=== PATIENT | female | born 1945 | race Caucasian/White ===

== ENCOUNTER → 2016-03-17 | Outpatient (CLI) | payer OTHER ==
[~2016-03-17] MED LIST: ACTONEL150 MG PO; ADULT LOW DOSE81 MG PO; CELEBREX 200 M200 MG PO; COLACE100 MG PO; EVISTA PO; FIBER GUMMIES2.5 GM PO; FLOMAX0.4 MG PO; GLUCOSAMINE CH1 EAC7 PO; ICAPS TABLET1 EACH PO; IRON325 M1 PO; LEXAPRO 10 MG T10 M2 PO; LOSARTAN-HCTZ1 EACH PO; MSM500 MG PO; MULTIVITAMINS PO; NORCO 7.5-3251 EACH PO; OCEAN45 ML NASAL; SALINE NOSE SPRAY NASAL; SIMVASTATIN40 MG PO; URECHOLINE 25 M25 M1 PO; VIACTIV SOFT C1 EACH PO; XARELTO10 M1 PO
== END ==
LOC: RAD 01:05
DX: Z12.31 Encounter for screening mammogram for malignant neoplasm of breast (principal)

== ENCOUNTER → 2016-05-21 | Outpatient (CLI) | payer OTHER | END | disposition home or self-care (01) | LOC: ULTRA 09:59 | DX: M16.12 Unilateral primary osteoarthritis, left hip (principal) ==

== ENCOUNTER 2016-09-14 05:41 | Inpatient (IN) | payer OTHER ==
[2016-09-06 13:20] LABS: URINE BILIRUBIN NEGATIVE (Negative); URINE BLOOD NEGATIVE (Negative); URINE COLOR YELLOW; URINE GLUCOSE-RANDOM* NEGATIVE (Negative); URINE KETONES NEGATIVE (Negative); URINE LEUKOCYTES-REFLEX NEGATIVE (Negative); URINE PROTEIN (DIPSTICK) NEGATIVE (Negative); URINE SPECIFIC GRAVITY 1.015 (1.003-1.035); URINE UROBILINOGEN 0.2 E.U./dl (0.2-1.0)
[2016-09-06 13:21] LABS: HEMATOCRIT 37.9 % (37.0-47.0); HEMOGLOBIN 12.9 gm/dL (12.0-15.0); MCH 30.5 pg (26.0-34.0); MCV 89.7 fL (80.0-100.0); RBC 4.22 mil/uL (4.20-5.00); RDW 12.7 % (10.5-14.5); WBC 7.9 thou/uL (4.0-11.0)
[2016-09-06 13:31] LABS: ALBUMIN 3.9 g/dL (3.4-5.0); CALCIUM 9.7 mg/dL (8.5-10.1); CREATININE 0.8 mg/dL (0.6-1.0); POTASSIUM 3.5 mmol/L (3.5-5.1)
[2016-09-06 13:35] LABS: PROTIME 10.5 Seconds (9.3-11.4)
[2016-09-14] VITALS (9 sets, daily range): BP systolic 104–143; BP diastolic 52–80
[~2016-09-14] VITALS: Ht 149.9 cm; Wt 63.0 kg
--- NOTE | ~2016-09-14 | O ---
[facility] [place] [address] OPERATIVE REPORT Name: GARRET GALAVIZ Room #: 539-P [facility] IN M.R.#: [id number] Admission: 09/14/16 Attend Phys: Jc Stark MD Discharge: 09/17/16 Date of : 43 Report #: [id number] THIS REPORT FOR: //name// CC: Ketan Stark DATE OF SERVICE: 09/14/2016 PREOPERATIVE DIAGNOSIS: Left hip degenerative joint disease, severe. POSTOPERATIVE DIAGNOSIS: Left hip degenerative joint disease, severe. PROCEDURE: Left total hip arthroplasty. SURGEON: Jc Stark MD CHIEF OF PEDIATRIC UROLOGY: RAKEL Mckenna INDICATIONS FOR CHIEF OF PEDIATRIC UROLOGY: During the course of operation, extensive manipulation, retraction and limb positioning was required. This was afforded to me by my salon assistant. ANESTHETIC: General. INDICATIONS: See hospital H and P. IMPLANTS UTILIZED: Used a [place] hip system. We used a Secur-Fit Max hip stem, 132-degree neck angle. We used a 32 outer diameter head, -5 neck length. We used a 48 hemispherical acetabular shell with a Trident X3 10-degree polyethylene insert. DESCRIPTION OF PROCEDURE: After adequate general anesthesia had been obtained, the patient was placed in lateral decubitus position with left hip up. Left hip and lower extremity was prepped and draped in the usual meticulous sterile fashion. A posterolateral incision was made in the hip. SubQ divided sharply. Hemostasis obtained with electrocautery. The IT band and gluteal fascia was divided. This layer was retracted with a Charnley retractor. Hip was internally rotated and the external rotators were detached at their insertion, tagged and retracted posteriorly. Capsular incision was made. It likewise was tagged and retracted posteriorly. Hip was dislocated. Soft tissue removed from the base of the neck. The neck was entered with a pointed awl and this was advanced into the canal. The canal was then sequentially reamed to a size 7. Neck osteotomy performed. Attention was directed to the acetabulum and was circumferentially exposed. [address] [address] OPERATIVE REPORT Name: GARRET GALAVIZ Room #: 539-P DIS IN M.R.#: [id number] Admission: 09/14/16 Attend Phys: Jc Stark MD Discharge: 09/17/16 Date of : 43 Report #: [id number] Labrum was excised. We reamed the acetabulum to a size 48. Trialed a 48, which got a good press fit, so we reamed to a 46, got a good press fit with a trial of 46, so we reamed to a 47, irrigated copiously and then implanted the shell. The wound was irrigated copiously once again and the liner was impacted into position and elevated portion posteriorly. Attention was redirected to the femur. Femur was sequentially broached to a size 7. Excellent torsional stability obtained. We then trial reduced her and with a -5 neck length, reapproximated her leg lengths and gave us excellent stability parameters. We then removed the trial components, irrigated copiously and then implanted the permanent component into position. We placed the stem and then the head was impacted into position. Hip was reduced. The capsule and the external rotators were reattached to the trochanter by placing drill holes in trochanter, placing sutures through the drill holes and tying them over a bone bridge. We then placed drains deep and superficial. Hip was irrigated copiously once final time. The IT band and gluteal fascia was closed with combination of an interrupted [id number] #1 Vicryl as well as running #1 Tevdek. SubQ closed in multiple layers due to the patient's size with 2-0 Monocryl. Skin closed with jenn. Sterile compressive dressing was applied. <ELECTRONICALLY SIGNED> By: Jc Stark MD 09/21/16 0723 1230 [id number] Jc Stark MD /nt
--- NOTE | ~2016-09-14 | EKG ---
[address] [address] ELECTROCARDIOGRAM REPORT Name: GARRET GALAVIZ Room #: PRE IN [facility].#: [id number] Admission: Attend Phys: Jc Stark MD Discharge: Date of : 43 Report #: [id number] THIS REPORT FOR: //name// [facility] Test Date: 2016-09-06 Test Time: 13:09:24 Pat Name: GARRET GALAVIZ Department: Room: Gender: F Host: Doyle BUSTAMANTE : 1945 Requested By: Jc Stark Order Number: [id number] MD: Kosta Osei Measurements Intervals [place] Rate: 75 P: 42 NC: 149 QRS: -9 QRSD: 91 T: 11 QT: 388 QTc: 434 Interpretive Statements Sinus rhythm Normal tracing Compared to ECG 04/09/2013 08:21:42 No significant changes Electronically Signed On 09-07-2016 7:39:31 CDT by Kosta Osei [email or web address] <ELECTRONICALLY SIGNED> By: Kosta Osei MD, [facility] 09/07/16 0739 1309 1309 Kosta Osei MD, FACC /EPI
[~2016-09-14 05:41] MED LIST changes: +ASPIR 8181 MG PO; +HYZAAR 50-12.51 EACH PO; +LEXAPRO 10 MG T10 MG PO; +MOVE FREE JOIN1 EACH PO; +NORCO 5-325 TA1 EACH PO; +PRESERVISION A1 EAC2 PO; +ZOCOR40 MG PO
[2016-09-14 16:56] LABS: HIV-1 P24 AG Nonreactive (Nonreactive)
[2016-09-15 04:00] VITALS: BP 97/48
[2016-09-15 06:29] LABS: HEMATOCRIT 31.5 % (37.0-47.0); HEMOGLOBIN 10.8 gm/dL (12.0-15.0); MCH 30.6 pg (26.0-34.0); MCHC 34.4 g/dL (28.0-37.0); PLATELET COUNT 214 thou/uL (150-400); RBC 3.54 mil/uL (4.20-5.00); RDW 12.6 % (10.5-14.5); WBC 15.3 thou/uL (4.0-11.0)
[2016-09-15 06:31] LABS: MANUAL DIFF YES
[2016-09-15 06:38] LABS: CALCIUM 8.6 mg/dL (8.5-10.1); CREATININE 0.7 mg/dL (0.6-1.0); POTASSIUM 3.7 mmol/L (3.5-5.1)
[2016-09-15 08:13] VITALS: BP 108/53
[2016-09-15 09:14] LABS: ABSOLUTE NEUTROPHILS 12.9 thou/uL (1.4-8.2); PLATELET ESTIMATE NORMAL; TOTAL CELL COUNT 100
[2016-09-15 13:13] VITALS: BP 108/53
[2016-09-15 15:07] LABS: HBsAG-EMPLOYEE EXPOSURE Negative (Negative); HCV AB-EMPLOYEE EXPOSURE <0.1 (0.0-0.9)
[2016-09-15 15:19] VITALS: BP 111/60
[2016-09-15 19:29] VITALS: BP 131/64
[2016-09-16 04:35] VITALS: BP 122/49
[2016-09-16 06:30] LABS: HEMATOCRIT 29.2 % (37.0-47.0); HEMOGLOBIN 10.1 gm/dL (12.0-15.0); MCH 30.6 pg (26.0-34.0); MCHC 34.4 g/dL (28.0-37.0); MCV 88.9 fL (80.0-100.0); RBC 3.29 mil/uL (4.20-5.00); RDW 12.8 % (10.5-14.5); WBC 12.8 thou/uL (4.0-11.0)
[2016-09-16] MEDS ORDERED: XARELTO10 MG PO (07:17)
[2016-09-16] MEDS ORDERED: HYDROCODONE-APA1 TA1 PO (07:17)
[2016-09-16 10:27] VITALS: BP 108/53
[2016-09-16 16:05] VITALS: BP 102/68
[2016-09-16 20:15] VITALS: BP 129/54
[2016-09-16 23:40] VITALS: BP 112/55
[2016-09-17 05:06] VITALS: BP 116/54
[2016-09-17 06:15] LABS: HEMATOCRIT 28.7 % (37.0-47.0); HEMOGLOBIN 9.6 gm/dL (12.0-15.0); MCH 30.2 pg (26.0-34.0); MCHC 33.6 g/dL (28.0-37.0); MCV 90.1 fL (80.0-100.0); RBC 3.19 mil/uL (4.20-5.00); WBC 11.5 thou/uL (4.0-11.0)
[2016-09-17 06:40] LABS: CALCIUM 8.7 mg/dL (8.5-10.1); CREATININE 0.7 mg/dL (0.6-1.0); POTASSIUM 3.2 mmol/L (3.5-5.1)
[2016-09-17 08:28] VITALS: BP 121/58
== END 2016-09-17 13:23 | disposition home health service (06) | DRG 470 ==
LOC: TBA 05:41 → 5S 05:41 → PRE 06:53 → 5S 14:09 → PRE 16:00 → 5S 09-17 13:23
PROVIDERS: Family Medicine; Nurse Practitioner Family; Orthopaedic Surgery
PROC: 0SRB04Z Replacement of Left Hip Joint with Ceramic on Polyethylene Synthetic Substitute, Open Approach (ICD-10-PCS; principal; 2016-09-14)
DX: M16.12 Unilateral primary osteoarthritis, left hip (principal); D62 Acute posthemorrhagic anemia; F32.9 Major depressive disorder, single episode, unspecified; I10 Essential (primary) hypertension; E78.00 Pure hypercholesterolemia, unspecified; Z96.641 Presence of right artificial hip joint; K59.00 Constipation, unspecified; Z88.0 Allergy status to penicillin; Z88.8 Allergy status to other drugs, medicaments and biological substances; Z88.1 Allergy status to other antibiotic agents; Z88.6 Allergy status to analgesic agent; Z91.040 Latex allergy status; Z90.49 Acquired absence of other specified parts of digestive tract; Z87.891 Personal history of nicotine dependence
CPT/HCPCS: 10785; 50010; 50101; 50382; 50414; 50455; 50855; 50939; 51412; 51771; 53000; 55383; 56521; 56525; 56527; 56530; 57095; 62110; 62900; 70005

== ENCOUNTER → 2016-10-18 | Outpatient (CLI) | payer OTHER | LOC: RAD 01:48 | DX: R92.8 Other abnormal and inconclusive findings on diagnostic imaging of breast (principal) ==

== ENCOUNTER → 2017-03-17 | Outpatient (CLI) | payer OTHER ==
[~2017-03-17] MED LIST changes: +HYDROCODONE-APA1 TA1 PO; +XARELTO10 MG PO
== END ==
LOC: RAD 01:36
DX: Z12.31 Encounter for screening mammogram for malignant neoplasm of breast (principal)

== ENCOUNTER → 2018-04-05 | Outpatient (CLI) | payer OTHER | LOC: RAD 03-29 15:01 | DX: Z12.31 Encounter for screening mammogram for malignant neoplasm of breast (principal) ==

== ENCOUNTER → 2019-04-13 | Outpatient (CLI) | payer OTHER | LOC: RAD 10:21 | DX: Z12.31 Encounter for screening mammogram for malignant neoplasm of breast (principal) ==

== ENCOUNTER → 2020-05-21 | Outpatient (CLI) | payer OTHER | LOC: BC 10:14 | PROVIDERS: ATTEND Internal Medicine | DX: Z12.31 Encounter for screening mammogram for malignant neoplasm of breast (principal) ==